=== PATIENT | male | born 1990 | race Caucasian/White ===

== ENCOUNTER 2019-12-11 17:59 | Emergency (ER) | payer OTHER, MEDICAID, SELFPAY ==
[2019-12-11] VITALS (7 sets, daily range): BP systolic 147–167; BP diastolic 83–92; PULSE 54–88; RESP 12–26; TEMP 36.4; O2SAT 98–100; BMI 23.1
--- NOTE | 2019-12-11 | DI.RAD.S_ITS ---
PROCEDURE: XR SHOULDER RT MIN 2V INDICATIONS: POST REDUCTION TECHNIQUE: To views of the shoulder were acquired. COMPARISON: [facility], CR, XR SHOULDER RT MIN 2V, 12/11/2019, 18:16. FINDINGS: Bones: Patient is status post reduction of right shoulder dislocation. There is normal association of the humeral head in the glenoid. Lucency noted in the lateral humeral head concerning for nondisplaced ill Flax fracture. Humeral head suture anchor is stable. Soft tissues: No suspicious soft tissue calcifications. IMPRESSION: Status post reduction right shoulder dislocation. Possible nondisplaced Hill-Sachs fracture. Dictated by: Marcy Ewing MD, PhD on 12/11/2019 at 19:10 Approved by: Marcy Ewing MD, PhD on 12/11/2019 at 19:11
--- NOTE | 2019-12-11 18:04 | DI.RAD.S_ITS ---
PROCEDURE: XR SHOULDER RT MIN 2V INDICATIONS: deformity TECHNIQUE: To views of the shoulder were acquired. COMPARISON: [facility], , XR SHOULDER 2+ VIEWS RIGHT, 10/09/2019, 17:03. FINDINGS: Bones: Anterior dislocation of the humerus is noted. Suture anchor in the humeral head is stable compared to the prior exam No suspicious bony lesions. Visualized ribs appear intact. Soft tissues: No suspicious soft tissue calcifications. IMPRESSION: Right shoulder anterior dislocation. Dictated by: Marcy Ewing MD, PhD on 12/11/2019 at 18:30 Approved by: Marcy Ewing MD, PhD on 12/11/2019 at 18:31
--- NOTE | 2019-12-11 18:17 | ED.GENADULT ---
HPI - General Adult General Chief complaint: Extremity Injury, Upper Stated complaint: Jumped off bridge Time Seen by Provider: 12/11/19 18:04 Source: patient and EMS Mode of arrival: EMS Limitations: no limitations History of Present Illness HPI narrative: Patient is a 29-year-old male. Otherwise healthy brought in by S crew. Not in a cervical collar. Not on a backboard. Here for evaluation of a right shoulder deformity consistent with a dislocation. Prior to arrival [place] coming in to [place]. Patient dropped off the bridges and landed into the water. His right shoulder injury occurred on the landing. Patient denies any other injuries except for his right shoulder. No head injuries. No loss of consciousness. He states he has dislocated his right shoulder multiple times in the past. Has had a labrum and rotator cuff repair in the past. Patient denies any drugs or alcohol. He states that he jumped to ?prove a point? to the people that were watching him do it. He states that he was doing it does show them that he would jump off the bridge. He states that he was not doing it in an attempt to hurt himself. Related Data Allergies Allergy/AdvReac Type Severity Reaction Status Date / Time acetaminophen Allergy Unknown Verified 12/11/19 18:07 Review of Systems Constitutional Constitutional: Denies fever(s) and Denies headache(s) Eyes Eyes: Denies change in vision ENT Ears, Nose, Mouth, and Throat: Denies headache(s) and Denies disequilibrium Cardiovascular Cardiovascular: Denies chest pain and Denies dyspnea Respiratory Respiratory: Denies dyspnea Gastrointestinal Gastrointestinal: Denies abdominal pain Genitourinary Genitourinary: Denies dysuria Genitourinary: Denies dysuria Musculoskeletal Musculoskeletal: Denies tingling Comments: Right shoulder pain Integumentary/Breasts Skin/Breast: Denies lesions and Denies rash Neurologic Neurologic: Denies behavioral changes, Denies headache(s), Denies tingling and Denies disequilibrium Psychiatric Psychiatric: Denies anxiety, Denies behavioral changes, Denies homicidal ideation and Denies suicidal ideation Hematologic/Lymphatic Hematologic/Lymphatic: Denies easy bleeding and Denies easy bruising Allergic/Immunologic Allergic/Immunologic: Denies urticaria Patient History Medical History Shoulder dislocation (Acute) Surgical History S/P right rotator cuff repair (Acute) Social History Smoking Status: Current every day smoker Smoking Status: Current every day smoker Substance Use Type: marijuana Exam Initial Vital Signs Initial Vital Signs: Vital Signs Temperature 97.6 F 12/11/19 18:04 Pulse Rate 61 12/11/19 18:04 Respiratory Rate 12 12/11/19 18:04 Blood Pressure 150/86 H 12/11/19 18:04 Pulse Oximetry 100 12/11/19 18:04 Const General: cooperative, comfortable, well developed, well groomed and No acute distress Limitations: mental status not altered HENVT Head: normal to inspection and normocephalic Eyes General: appearance normal, both eyes and all related structures Chest Chest: No crepitus and No tenderness Resp Effort & Inspection: normal respiratory effort Auscultation: clear to auscultation bilaterally Cardio Rate: regular rate Rhythm: regular rhythm Pulses: radial pulses present on the right GI Inspection: non-distended Palpation: soft and No firm Back/Spine/Pelvis Cervical Spine: cervical ROM normal, No collar present and No cervical spinal tenderness Thoracic/Lumbar Spine: No thoracic spinal tenderness and No lumbar spinal tenderness Skin Lesions: no lesions Rashes: no rashes Neuro General: patient alert, patient awake and patient oriented x3 Cognition: normal cognition Speech: speech normal Gait: normal gait Other: Patient with intact sensation to the right left lateral deltoid Extrem General: capillary refill normal Other: Obvious deformity of the right shoulder. No left upper extremity pelvis right lower left lower extremity abnormalities or pain. No back pain. No ankle pain. No neck pain. Psych Appearance: grossly normal and well kempt Thought Content: suicidality Procedures Orthopedic Joint Reduction Joint #1: Time Out Performed: Yes Side: right Joint Reduction Location: shoulder Analgesia: procedural sedation Shoulder Technique Used (if applicable): Milch Post-reduction neuro exam: intact Post-reduction vascular: intact Post Reduction X-Ray Obtained: Yes Post Reduction X-Ray Results: reduced Splint Applied: Yes (Sling) Patient Tolerated Procedure: Well and No complications Orthopedic Splinting/Casting Injury #1: Side: right Upper Extremity Injury Location: shoulder Upper Extremity Immobilizer: sling/shoulder immobilizer Post splinting neuro exam: intact Post splinting vascular exam: intact Placed by: Nursing Procedural Sedation Consent signed: Yes Time out performed: Yes Indication: fracture/dislocation reduction Presedation Evaluation: See HPI Preparation: repair mechanic applied, pulse oximeter, capnometry used, supplemental O2 applied, suction/airway equipment at bedside and IV secured IV Propofol dose (mg): 80 ED Sedation Level: Minimal Patient Tolerated Procedure: Well and No complications Complications: none Scores GCS Ambar coma scale eye opening: Spontaneous Ambar coma scale verbal response: Orientated [place] coma scale motor response: Obey commands Ambar coma scale total score: 15 Nexus Score for C-Spine Focal Neurologic deficit present: No Midline spinal tenderness present: No Altered level of conciousness present: No Intoxication present: No Distracting Injury Present: No Nexus Criteria for C-spine: 0 Course Orders Ordered: ED Orders 12/11/19 18:04 XR shoulder RT min 2V Stat 12/11/19 18:22 EKG-12 Lead Stat 12/11/19 18:23 RT Consult Eval and Treat Now Discontinued Medications Propofol (Diprivan) 100 mg IV NOW ONE Stop: 12/11/19 18:23 Last Admin: 12/11/19 18:41 Dose: 100 mg Documented by: ARANZA Vital Signs Vital signs: Vital Signs - 8 hr 12/11/19 18:04 12/11/19 18:10 12/11/19 18:42 Temperature 97.6 F Pulse Rate 61 62 84 Respiratory Rate 12 13 18 Blood Pressure 150/86 H Blood Pressure [Left Arm] 153/87 H Pulse Oximetry 100 100 100 12/11/19 18:45 12/11/19 18:52 12/11/19 19:01 Temperature Pulse Rate 80 88 54 L Respiratory Rate 22 26 H 19 Blood Pressure Blood Pressure [Left Arm] 167/83 H 147/92 H Pulse Oximetry 100 100 99 12/11/19 19:38 Temperature Pulse Rate 66 Respiratory Rate 16 Blood Pressure 147/92 H Blood Pressure [Left Arm] Pulse Oximetry 98 Medical Decision Making Imaging Data Postreduction x-ray: Radiologist's Impression: [address] [address] XRay Report Signed Patient: Yue HollisRnoak#: [id number] : 1990Acct:[id number] Age/Sex: 29 / MDate of Service: 12/11/19 Loc: ED Accession Number: [id number] Procedure: XR shoulder RT min 2V Ordering Provider: Zoltan Mendieta D.O. PROCEDURE: XR SHOULDER RT MIN 2V INDICATIONS: POST REDUCTION TECHNIQUE: To views of the shoulder were acquired. COMPARISON: [facility], XR SHOULDER RT MIN 2V, 12/11/2019, 18:16. FINDINGS: Bones: Patient is status post reduction of right shoulder dislocation. There is normal association of the humeral head in the glenoid. Lucency noted in the lateral humeral head concerning for nondisplaced ill Flax fracture. Humeral head suture anchor is stable. Soft tissues: No suspicious soft tissue calcifications. IMPRESSION: Status post reduction right shoulder dislocation. Possible nondisplaced Hill-Sachs fracture. Dictated by: Marcy Ewing MD, PhD on 12/11/2019 at 19:10 Approved by: Marcy Ewing MD, PhD on 12/11/2019 at 19:11 Extremity x-ray #1: Radiologist's Impression: [place] [address] XRay Report Signed Patient: Daniel Hollis#: [id number] : 1990Acct:[id number] Age/Sex: 29 / MDate of Service: 12/11/19 Loc: ED Accession Number: [id number] Procedure: XR shoulder RT min 2V Ordering Provider: Zoltan Mendieta D.O. PROCEDURE: XR SHOULDER RT MIN 2V INDICATIONS: deformity TECHNIQUE: To views of the shoulder were acquired. COMPARISON: [facility], XR SHOULDER 2+ VIEWS RIGHT, 10/09/2019, 17:03. FINDINGS: Bones: Anterior dislocation of the humerus is noted. Suture anchor in the humeral head is stable compared to the prior exam No suspicious bony lesions. Visualized ribs appear intact. Soft tissues: No suspicious soft tissue calcifications. IMPRESSION: Right shoulder anterior dislocation. Dictated by: Marcy Ewing MD, PhD on 12/11/2019 at 18:30 Approved by: Marcy Ewing MD, PhD on 12/11/2019 at 18:31 MDM Narrative Medical decision making narrative: Patient abdomen with multiple questioning by multiple different individuals that he jumped from the bridge ?because I am stupid? and not an attempt to hurt himself. Patient is alert oriented x3. GCS of 15. My opinion has capacity to make decisions. His right shoulder dislocation was reduced as described above. He was neurovascularly intact before and after. He is placed in a sling. Patient was instructed that he needed to contact a primary provider and also given information for orthopedic follow-up. He was also given care instructions and return precautions. Expressed understanding and agreement. Upon arrival modified trauma was called secondary to the distance that the patient jumped. He arrived not on a backboard not of the cervical collar however no other injuries except for his right shoulder dislocation were reported from the patient or found on the exam. I thought that the right shoulder dislocation was not distracting to him. His C-spine was cleared by nexus criteria. I feel we can hold on other radiologic studies for now. Patient was ambulatory afterwards. He was given return precautions and follow-up instructions. Discharge Plan Departure Patient Disposition: Home Clinical Impression: Anterior dislocation of right shoulder Qualifiers: Encounter type: initial encounter Qualified Code(s): S43.014A - Anterior dislocation of right humerus, initial encounter Discharge Date/Time: 12/11/19 19:40 Instructions: How to Use a Sling, DI for Shoulder Dislocation Activity Restrictions/Additional Instructions: The sling is for your comfort however I do recommend that you wear it for the next couple days especially at night when your sleeping. You want to avoid the position that we discussed in the emergency department to lessen the likelihood of dislocating her shoulder again. Recommend that you contact your primary provider. If you do not have a primary provider you can contact [phone]. I also recommend that you contact the [facility] group at [phone]. Return to the emergency department for any new or worsening symptoms.
[2019-12-11] MEDS: propofoL 200 MG/20 ML VIAL 100 MG IV (18:41)
--- NOTE | 2019-12-11 19:24 | PC.NURSE ---
Pt ambulated with a steady gait to the restroom
== END 2019-12-11 19:40 | disposition home or self-care (01) ==
PROVIDERS: Emergency Provider Emergency Medicine
DX: S43.014A Anterior dislocation of right humerus, initial encounter (principal); W13.1XXA Fall from, out of or through bridge, initial encounter; W16.611A Jumping or diving into natural body of water striking water surface causing drowning and submersion, initial encounter; R00.1 Bradycardia, unspecified
CPT/HCPCS: 23650; 36415; 73030; 93005; 94770; 99152; 99285; J2704